=== PATIENT | female | born 1975 | race Caucasian/White ===

== ENCOUNTER 2021-10-21 15:15 | Emergency (ER) | payer BC ==
--- OUTSIDE RECORDS SUMMARY | 2021-10-21 15:19 | XMS REPORT | Continuity of Care Document ---
:1975 Author Organization [facility] Address [address] [place] [address] Care Team Providers Name Role Phone ROCK Primary Care Physician Unavailable DR ROCK Attending Clinician Unavailable [phone] Attending Clinician Unavailable Yehuda Attending Clinician Unavailable DR ROCK Admitting Clinician Unavailable Yehuda Admitting Clinician Unavailable Payers Payer Name Policy Type Policy Number Effective Date Expiration Date Marcy CARLOS CROSS BLUE [id number] SHIELD - OP Problems Condition Condition Condition Status Onset Resolution Last Treating Co mments Source Name Details Category Date Date Treatment Clinician Date Secondary Secondary Problem Active [facility] dysmenorrh Dysmenorrh 12-09 da ea ea 00:00: Medical 00 Group Menorrhagi Menorrhagi Problem Active [facility] a a 5-27 da 00:00: Medical 00 Group Insertion Insertion Problem Active [facility] of of 5- da intrauteri Intrauteri 00:00: Me dical ne ne 00 Group contracept Contracept thierry device thierry Device Obesity Obesity Problem Active [facility] Seromucino Seromucino Problem Active [facility] us otitis us Otitis da [facility] Otalgia Otalgia Problem Active [facility] Hearing Hearing Problem Active [facility] loss [facility] Acute Acute Problem Active [facility] sinusitis Sinusitis [facility] Pharyngiti Pharyngiti Problem Active [facility] s s [facility] Pain in Pain in Problem Active [facility] throat Throat [facility] Tonsilliti Tonsilliti Problem Active [facility] s [facility] Upper Upper Problem Active [facility] respirator Respirator da y y Medical infection Infection Grou p Sinusitis Sinusitis Problem Active [facility] Allergic Allergic Problem Active [facility] rhinitis [facility]initis [facility] Cyst of Cyst of Problem Active [facility] ovary Ovary [facility] Backache Backache Problem Active [facility] Headache Headache Problem Active [facility] Elevated Elevated Problem Active [facility] blood Blood da pressure Pressure Medica l Group Allergies, Adverse Reactions, Alerts Allergy Allergy Status Severity Reaction(s) Onset Inactive Treating Comm ents Source Name Type Date Date Clinician PENICILL Allergy Active Rash Florentinagobarbi [facility] Social History Smoking Status Start Date Stop Date Source Never Smoker [facility] Medications Ordered Filled Start Stop Current Ordering Indication Dosage Frequency Signature Comments Components Source Medication Medication Date Date Medication? Clinician (SIG) Name Name Wellbutrin Wellbutrin No 1 Q1D Wellbutrin [facility] XL 150 mg XL 150 mg XL 150 mg da 24 hr 24 hr 24 hr Medical tablet, tablet, tablet, Group extended extended extended release release release Take 1 Take 1 Take 1 tablet tablet tablet every day every day every day by oral by oral by oral route. route. route. Zithromax Zithromax No Zithromax [facility] Z-Kings 250 Z-Kings 250 Z-Kings 250 da mg tablet mg tablet mg tablet Medical TAKE 2 TAKE 2 TAKE 2 Group TABLETS TABLETS TABLETS (500 MG) BY (500 MG) BY (500 MG) ORAL ROUTE ORAL ROUTE BY ORAL ONCE DAILY ONCE DAILY ROUTE ONCE FOR 1 DAY FOR 1 DAY DAILY FOR THEN 1 THEN 1 1 DAY THEN TABLET (250 TABLET (250 1 TABLET MG) BY ORAL MG) BY ORAL (250 MG) ROUTE ONCE ROUTE ONCE BY ORAL DAILY FOR 4 DAILY FOR 4 ROUTE ONCE DAYS DAYS DAILY FOR 4 DAYS Vital Signs Vital Name Observation Time Observation Value Comments Source BP Diastolic 2018-10-07 00:00:00 93 mm[Hg] [facility] Height 2018-10-07 00:00:00 61 [in_i] [facility] BMI (Body Mass 2018-10-07 00:00:00 43.5 kg/m2 [facility] Group BP Systolic 2018-10-07 00:00:00 133 mm[Hg] [facility] Body Weight 2018-10-07 00:00:00 3680 [oz_av] [facility] Procedures Procedure Date / Time Performed Performing Clinician [facility] e Hernia Repair W/mesh 2014-08-30 00:00:00 [facility] Plan of Care Planned Activity Planned Date Details Comments Source Instructions [facility] Encounters Start End Encounter Admission Attending Care Care Encounter Source Date/Time Date/Time Type Type Clinicians Facility Department ID 2021-10-11 2021-10-11 Outpatient N [facility] Y [id number] El 09:32:00 09:32:00 [id number] [facility] 2020-06-02 2020-06-02 [place] [id number] [facility] 02:21:00 02:21:00 [facility] 2020-04-14 2020-04-14 [place] [id number] [facility] 10:29:00 10:29:00 0930 [facility] 2018-10-07 2018-10-07 Nohem[facility] [place] - [id number] [facility] 00:00:00 00:00:00 [facility] sher Blackman PROCESS LINE OPERATOR: [address] [facility] - [address], [place] [address] , Ph. Results This patient has no known results.
--- NOTE | 2021-10-21 16:06 | RAD REPORT ---
EXAM DESCRIPTION: RAD - Chest Single View - 10/21/2021 3:57 pm CLINICAL HISTORY: CHEST PAIN COMPARISON: None available TECHNIQUE: AP portable chest image was obtained 10/21/2021 3:57 pm . FINDINGS: Lungs are clear. Heart and vasculature are normal. No measurable pleural effusion and no p neumothorax. No acute bony abnormality seen. No acute aortic findings suspected. IMPRESSION: No acute cardiopulmonary process.
[2021-10-21 16:17] LABS: Absolute Lymphocytes (CBC) 2.6 K/uL (0.7-4.9); Hematocrit 41.3 % (36.0-45.0); Lymphocytes % 26.3 % (15.3-44.8); MPV 8.4 fL (7.6-11.3); RBC Red Blood Cell Count 4.63 M/uL (3.86-4.86)
[2021-10-21 16:31] LABS: Potassium 3.6 mmol/L (3.5-5.1)
[2021-10-21 16:52] LABS: Urine Blood Negative (Negative); Urine Glucose Negative (Negative); Urine Protein Negative (Negative); Urine Specific Gravity >=1.030 (1.005-1.030)
[2021-10-21 17:35] LABS: Protime INR 1.05
[2021-10-21 18:23] LABS: Thyroid Stimulating Hormone 2.29 uIU/mL (0.360-3.740)
--- NOTE | 2021-10-21 18:38 | RAD REPORT ---
EXAM DESCRIPTION: CT - Chest For Pe Angio - 10/21/2021 6:11 pm CLINICAL HISTORY: Chest pain;Palpitations COMPARISON: Chest Single View dated 10/21/2021 TECHNIQUE: Dynamically enhanced 3 mm thick images of the chest were obtained during administration o f approximately 150mL Isovue 370 IV contrast. Coronal and oblique MIP reconstruction images were gene rated and reviewed. Exam utilizes a protocol to evaluate the pulmonary arterial tree. All CT scans are performed using dose optimization technique as appropriate and may include automated exposure control or mA/KV adjustment according to patient size. FINDINGS: No pulmonary emboli are identified. The aorta as imaged shows no acute or suspicious finding. No pericardial thickening or effusion. No infiltrate or mass in the lung parenchyma. No pleural effusion or pleural thickening. No mediastinal or hilar suspicious masses. No chest wall masses or abnormal axillary lymphadenopathy. Minimal hiatal hernia is present. The distal-most esophageal price at the GE junction are slightly th ickened. This is likely the affects of the hiatal hernia rather than an acute esophageal finding. Thi s can be correlated with clinical presentation. IMPRESSION: No pulmonary emboli identified. Small hiatal hernia is present. Distal most esophageal price appear slightly thickened at the GE junc tion likely artifact due to the hiatal hernia. Esophagitis etiology is not likely without supporting clinical presentation.
--- NOTE | 2021-10-21 18:52 | EDPHYS ---
Physician Documentation [facility] Name: Josey Mock Age: 46 yrs Sex: Female : 1975 Arrival Date: 10/21/2021 Time: 15:17 Bed 26 Private MD: ED Physician Hubert Thorpe HPI: 10/21 15:45 This 46 yrs old Female presents to ER via Ambulatory with complaints of Chest Pain, cp Palpitations, Arm Pain, Shortness Of Breath. 15:45 The patient or guardian reports chest pain that is located primarily in the anterior cp chest wall. 15:45 Onset: 30 minute(s) ago. The patient presents with a history of heart racing. Context: cp The symptoms occur at rest. Onset: The symptoms/episode began/occurred yesterday. Duration: The patient or guardian reports multiple episodes, that wax and wane. The pain radiates to back. Associated signs and symptoms: Pertinent positives: SOB, Pertinent negatives: cough, fever, syncope, vomiting. 15:45 The chest pain is described as sharp. cp Historical: - Allergies: 15:23 PENICILLINS; ab2 - PMHx: 15:23 Mitral Valve Prolapse; Moniteau's; ab2 - PSHx: 15:23 None; ab2 - Immunization history:: Adult Immunizations up to date. - Social history:: Smoking status: Patient denies any tobacco usage or history of. ROS: 15:50 Constitutional: Negative for body aches, chills, fever, poor PO intake. cp 15:50 Eyes: Negative for injury, pain, redness, and discharge. cp 15:50 ENT: Negative for ear pain, sore throat, difficulty swallowing, difficulty handling secretions. 15:50 Cardiovascular: Positive for chest pain, palpitations, Negative for edema. 15:50 Respiratory: Positive for shortness of breath, Negative for cough, wheezing. 15:50 Abdomen/GI: Negative for abdominal pain, nausea, vomiting, and diarrhea. 15:50 Back: Positive for radiated pain. 15:50 Neuro: Negative for altered mental status, dizziness, headache, numbness, syncope, weakness. 15:50 All other systems are negative. Exam: 15:30 ECG was reviewed by the Attending Physician. cp 15:55 Constitutional: The patient appears in no acute distress, alert, awake, cp non-diaphoretic, non-toxic, well developed, well nourished. 15:55 Head/Face: Normocephalic, atraumatic. cp 15:55 Eyes: Periorbital structures: appear normal, Conjunctiva: normal, no exudate, no injection, Sclera: no appreciated abnormality, Lids and lashes: appear normal, bilaterally. 15:55 ENT: External ear(s): are unremarkable, Nose: is normal, Mouth: Lips: moist, Oral mucosa: moist, Posterior pharynx: Airway: no evidence of obstruction, patent. 15:55 Neck: ROM/movement: is normal, is supple, without pain, no range of motions limitations. 15:55 Chest/axilla: Inspection: normal. 15:55 Cardiovascular: Rate: tachycardic, Rhythm: regular, Edema: is not appreciated, JVD: is not appreciated. 15:55 Respiratory: the patient does not display signs of respiratory distress, Respirations: normal, no use of accessory muscles, no retractions, labored breathing, is not present, Breath sounds: are clear throughout, no decreased breath sounds, no stridor, no wheezing. 15:55 Abdomen/GI: Inspection: abdomen appears normal, Palpation: abdomen is soft and non-tender, in all quadrants. 15:55 Back: ROM is normal, CVA tenderness, is absent, vertebral tenderness, is not appreciated. 15:55 Neuro: Orientation: to person, place \T\ time. Mentation: is normal, Cerebellar function: is grossly normal, Motor: moves all fours, strength is normal, Sensation: is normal. Vital Signs: 15:24 BP 163 / 101; Pulse 104; Resp 17; Temp 98.2(TE); Pulse Ox 100% on R/A; Weight 69.85 kg; ab2 Height 5 ft. 10 in. (177.80 cm); Pain 5/10; 16:30 BP 146 / 96; Pulse 89; Resp 16; Pulse Ox 100% on R/A; jb4 18:01 BP 145 / 93; Pulse 91; Resp 18; Pulse Ox 100% on R/A; jb4 19:00 BP 133 / 94; Pulse 90; Resp 16; Pulse Ox 100% on R/A; jb4 15:24 Body Mass Index 22.10 (69.85 kg, 177.80 cm) ab2 MDM: 15:33 Patient medically screened. bjorn 16:00 Differential diagnosis: acute myocardial infarction, acute pericarditis, anxiety, cp arrythmia, dehydration, stress disorder, pulmonary embolus, stable angina, thoracic aortic disection, unstable angina. 18:50 Data reviewed: vital signs, nurses notes, lab test result(s), EKG, radiologic studies, cp CT scan, plain films. 18:50 Test interpretation: by ED physician or midlevel provider: ECG, plain radiologic cp studies. Counseling: I had a detailed discussion with the patient and/or guardian regarding: the historical points, exam findings, and any diagnostic results supporting the discharge/admit diagnosis, lab results, radiology results, the need for outpatient follow up, for definitive care, a warp changer, to return to the emergency department if symptoms worsen or persist or if there are any questions or concerns that arise at home. Response to treatment: the patient's symptoms have markedly improved after treatment, and as a result, I will discharge patient. Special discussion: Based on the patient's history, exam, and Dx evaluation, there is no indication for emergent intervention or inpatient Tx. It is understood by the patient/guardian that if the Sx's persist or worsen they need to return immediately for re-evaluation. 10/21 15:49 Order name: Basic Metabolic Panel; Complete Time: 18:13 [facility] 10/21 18:13 Interpretation: Normal except: GFR 72. 10/21 15:49 Order name: CBC with Diff; Complete Time: 18:13 [facility] 10/21 18:14 Interpretation: Reviewed. 10/21 15:49 Order name: Troponin HS; Complete Time: 18:13 [facility] 10/21 16:00 Order name: BNP; Complete Time: 18:13 10/21 16:00 Order name: D-Dimer; Complete Time: 18:13 10/21 16:00 Order name: PT-INR; Complete Time: 18:13 10/21 15:29 Order name: EKG; Complete Time: 15:30 10/21 15:49 Order name: XRAY Chest (1 view); Complete Time: 18:13 [facility] 10/21 18:14 Interpretation: Report review. 10/21 16:00 Order name: Ptt, Activated; Complete Time: 18:13 10/21 16:13 Order name: TSH; Complete Time: 18:42 cp 10/21 16:13 Order name: T3 Free; Complete Time: 18:42 cp 10/21 16:53 Order name: Urine Dipstick-Ancillary; Complete Time: 18:13 EDMS 10/21 16:55 Order name: Urine --Ancillary (enter results); Complete Time: 18:42 eb 10/21 17:45 Order name: CT Chest For PE Angio; Complete Time: 18:42 cp 10/21 15:25 Order name: EKG - Nurse/Tech; Complete Time: 15:25 ab2 10/21 15:49 Order name: Cardiac monitoring; Complete Time: 16:35 jb4 10/21 15:49 Order name: IV Saline Lock; Complete Time: 16:16 jb4 10/21 15:49 Order name: Labs collected and sent; Complete Time: 16:16 jb4 10/21 15:49 Order name: O2 Per Protocol; Complete Time: 16:35 jb4 10/21 15:49 Order name: O2 Sat Monitoring; Complete Time: 16:35 jb4 10/21 16:00 Order name: Urine Dipstick-Ancillary (obtain specimen); Complete Time: 16:54 cp 10/21 16:00 Order name: Urine Test (obtain specimen); Complete Time: 16:54 cp EC:30 Rate is 102 beats/min. Rhythm is regular. KS interval is normal. QRS interval is cp normal. QT interval is normal. T waves are Inverted in lead aVR. Interpreted by me. Reviewed by me. Administered Medications: No medications were administered Disposition Summary: 10/21/21 18:52 Discharge Ordered Location: Home cp Problem: new cp Symptoms: have improved cp Condition: Stable cp Diagnosis - Chest pain, unspecified cp - Palpitations cp Followup: cp - With: Nico Green MD - When: 2 - 3 days - Reason: Recheck today's complaints Discharge Instructions: - Discharge Summary Sheet cp - Nonspecific Chest Pain, Adult cp - Palpitations cp - Aspirin and Your Heart cp Forms: - Medication Reconciliation Form cp - Thank You Letter cp - Antibiotic Education cp - Prescription Opioid Use cp Signatures: Dispatcher [employer] EDHubert Roberts MD MD cha Page, Corey, PA PA cp Milan Zhao, SILVA RN jb4 Bleininger, Adebayo ab2
--- NOTE | 2021-10-21 18:52 | ER ---
Nurse's Notes [facility] Name: Josey Mock Age: 46 yrs Sex: Female : 1975 Arrival Date: 10/21/2021 Time: 15:17 Bed 26 Private MD: Diagnosis: Chest pain, unspecified;Palpitations Presentation: 10/21 15:22 Chief complaint: Patient states: "About 30 minutes ago I started having some chest pain ab2 that radiates in between my shoulder blades." Pt does c/o SOB. Coronavirus screen: Vaccine status: Patient reports receiving the 2nd dose of the covid vaccine. Client denies travel out of the [place] in the last 14 days. At this time, the client does not indicate any symptoms associated with coronavirus-19. Ebola Screen: Patient negative for fever greater than or equal to 101.5 degrees Fahrenheit, and additional compatible Ebola Virus Disease symptoms Patient denies exposure to infectious person. Patient denies travel to an Ebola-affected area in the 21 days before illness onset. No symptoms or risks identified at this time. Initial Sepsis Screen: Does the patient meet any 2 criteria? No. Patient's initial sepsis screen is negative. Does the patient have a suspected source of infection? No. Patient's initial sepsis screen is negative. Risk Assessment: Do you want to hurt yourself or someone else? Patient reports no desire to harm self or others. Onset of symptoms is unknown. 15:22 Method Of Arrival: Ambulatory ab2 15:22 Acuity: RJ 3 ab2 Triage Assessment: 15:24 General: Appears in no apparent distress. comfortable, Behavior is calm, cooperative, ab2 appropriate for age. Pain: Complains of pain in chest. EENT: No deficits noted. No signs and/or symptoms were reported regarding the EENT system. Neuro: Level of Consciousness is awake, alert, obeys commands, Oriented to person, place, time, situation, Appropriate for age Drag Seiner are equal bilaterally Moves all extremities. Gait is steady, Speech is normal, Facial symmetry appears normal. Cardiovascular: Reports chest pain, lightheadedness, palpitations, shortness of breath. Respiratory: Reports shortness of breath Airway is patent Respiratory effort is even, unlabored, Respiratory pattern is regular, symmetrical. GI: No deficits noted. No signs and/or symptoms were reported involving the gastrointestinal system. : No deficits noted. No signs and/or symptoms were reported regarding the genitourinary system. Derm: Skin is intact, is healthy with good turgor, Skin is pink, warm \\T\\ dry. Historical: - Allergies: 15:23 PENICILLINS; ab2 - PMHx: 15:23 Mitral Valve Prolapse; Riccardo's; ab2 - PSHx: 15:23 None; ab2 - Immunization history:: Adult Immunizations up to date. - Social history:: Smoking status: Patient denies any tobacco usage or history of. Screenin/07 15:30 Abuse screen: Denies threats or abuse. Nutritional screening: No deficits noted. jb4 Tuberculosis screening: No symptoms or risk factors identified. Fall Risk None identified. Assessment: 10/21 15:30 General: Appears in no apparent distress. uncomfortable, Behavior is calm, cooperative, jb4 appropriate for age. Pain: Complains of pain in chest Pain radiates to thoracic area Pain currently is 5 out of 10 on a pain scale. Pain began 30 min ago. Neuro: Level of Consciousness is awake, alert, obeys commands, Oriented to person, place, time, situation. Cardiovascular: Patient's skin is warm and dry. Respiratory: Airway is patent Respiratory effort is even, unlabored, Respiratory pattern is regular, symmetrical. GI: No signs and/or symptoms were reported involving the gastrointestinal system. : No signs and/or symptoms were reported regarding the genitourinary system. EENT: No signs and/or symptoms were reported regarding the EENT system. Derm: Skin is intact, Skin is pink, warm \\T\\ dry. Musculoskeletal: Circulation, motion, and sensation intact. Range of motion: intact in all extremities. 16:30 Reassessment: Patient appears in no apparent distress at this time. Patient and/or jb4 family updated on plan of care and expected duration. Pain level reassessed. Patient is alert, oriented x 3, equal unlabored respirations, skin warm/dry/pink. 18:00 Reassessment: Patient appears in no apparent distress at this time. Patient and/or jb4 family updated on plan of care and expected duration. Pain level reassessed. Patient is alert, oriented x 3, equal unlabored respirations, skin warm/dry/pink. 19:13 Reassessment: Patient appears in no apparent distress at this time. Patient and/or jb4 family updated on plan of care and expected duration. Pain level reassessed. Patient is alert, oriented x 3, equal unlabored respirations, skin warm/dry/pink. Vital Signs: 15:24 BP 163 / 101; Pulse 104; Resp 17; Temp 98.2(TE); Pulse Ox 100% on R/A; Weight 69.85 kg; ab2 Height 5 ft. 10 in. (177.80 cm); Pain 5/10; 16:30 BP 146 / 96; Pulse 89; Resp 16; Pulse Ox 100% on R/A; jb4 18:01 BP 145 / 93; Pulse 91; Resp 18; Pulse Ox 100% on R/A; jb4 19:00 BP 133 / 94; Pulse 90; Resp 16; Pulse Ox 100% on R/A; jb4 15:24 Body Mass Index 22.10 (69.85 kg, 177.80 cm) ab2 ED Course: 10/20 15:30 Patient has correct armband on for positive identification. Bed in low position. Call jb4 light in reach. Side rails up X 1. Pulse ox on. NIBP on. 15:30 No provider procedures requiring assistance completed. Patient maintains SpO2 jb4 saturation greater than 95% on room air. 04 15:17 Patient arrived in ED. mr 15:23 Triage completed. ab2 15:24 Arm band placed on right wrist. ab2 15:29 Hubert Negrete PA is PHCP. cp 15:29 Hubert Thorpe MD is Attending Physician. cp 15:48 Milan Zhao, SILVA is Primary Nurse. jb4 15:59 XRAY Chest (1 view) In Process Unspecified. EDMS 16:15 Inserted saline lock: 20 gauge in right antecubital area, using aseptic technique. jw7 Blood collected. 18:13 CT Chest For PE Angio In Process Unspecified. EDMS 18:51 Nico Green MD is Referral Physician. cp 19:14 IV discontinued, intact, bleeding controlled, No redness/swelling at site. Pressure jb4 dressing applied. Administered Medications: No medications were administered Outcome: 18:52 Discharge ordered by MD. cp 19:14 Discharged to home ambulatory, with family. jb4 19:14 Condition: stable 19:14 Discharge instructions given to patient, Instructed on discharge instructions, follow up and referral plans. Demonstrated understanding of instructions, follow-up care. 19:15 Patient left the ED. jb4 Signatures: Dispatcher [employer] Trinh Plasencia Corey, PA PA cp Bryson, James, RN RN jb4 Adebayo Riggs2 Shamika Lizarraga jw7
[2021-10-21 22:50] VITALS: TEMP 98.2; O2SAT 100
[2021-10-21 22:54] VITALS: BP 133/94
--- NOTE | 2021-10-24 09:44 | EKG ---
Test Date: 2021-10-21 Test Time: 15:23:44 Clinical Biostatistics Director: WALLACE MEASUREMENT RESULTS: Intervals: Rate: 102 DE: 142 QRSD: 80 QT: 354 QTc: 461 [place]: P: 266 DE: 142 QRS: 69 T: 77 INTERPRETIVE STATEMENTS: Unusual P axis, possible ectopic atrial tachycardia with frequent premature ventricular complexes Abnormal ECG No previous ECG available for comparison Electronically Signed On 10-24-21 09:36:22 CDT by Nico Green
== END 2021-10-21 19:15 | disposition home or self-care (01) ==
LOC: ER 15:15
DX: R07.9 Chest pain, unspecified (principal); R00.2 Palpitations; I34.1 Nonrheumatic mitral (valve) prolapse; Z88.0 Allergy status to penicillin
CPT/HCPCS: 93005; 85025; 80048; 36415; 81025; 85610; 85379; 85730; 84443; 81003; 84484; 84481; 83880; 71275; 71045; 99284; Q9967